=== PATIENT | female | born 1960 | race Two or more races ===

== ENCOUNTER 2018-01-02 22:01 | Emergency (ER) | payer OTHER ==
[~2018-01-02] VITALS: Ht 157.5 cm; Wt 78.9 kg
[2018-01-02] MEDS ORDERED: HYDROCODONE/APAP 5/325MG 1 EACH TABLET PO ONE (22:30)
[2018-01-02] MEDS ORDERED: ONDANSETRON 4 MG TAB.RAPDIS PO ONE (22:30)
[2018-01-02] MEDS ORDERED: IBUPROFEN 600 MG TABLET PO ONE ×2 (22:30→22:32)
[2018-01-02] MEDS ORDERED: HYDROCODONE/APAP 5/325MG 1 EACH TABLET ONE (22:31)
[2018-01-02] MEDS ORDERED: ONDANSETRON 4 MG TAB.RAPDIS ONE (22:32)
--- NOTE | 2018-01-02 22:39 | NUR ---
pt refused [place]-5 and zofran odt. stated that zofran makes her feel worse. pt only took motrin 600mg po. informed .
--- NOTE | 2018-01-02 22:50 | NUR ---
PT REFUSING CT SCANS. DR GOLDBERG NOTIFIED.
--- NOTE | 2018-01-03 01:26 | NUR ---
Patient discharged to home in stable condition. Written and verbal after care instructions given. Patient verbalizes understanding of instruction. PT REC'D AN SEAN BANDAGE TO LEFT ANKLE. GRIPPER SOCKS GIVEN. PT REFUSED NAPROSYN RX. AWARE. PT WAS INSTRUCTED TO TAKE IBUPROPHEN. VSS. PT AMBULATED OUT WITH A LIMP. PT'S IS DRIVING PT HOME.
[2018-01-03 01:28] VITALS: BP 127/68
== END 2018-01-03 01:29 | disposition home or self-care (01) ==
LOC: ER 22:02
DX: S93.402A Sprain of unspecified ligament of left ankle, initial encounter (principal); S80.01XA Contusion of right knee, initial encounter; S00.532A Contusion of oral cavity, initial encounter; W01.10XA Fall on same level from slipping, tripping and stumbling with subsequent striking against unspecified object, initial encounter; Y93.01 Activity, walking, marching and hiking; Y92.89 Other specified places as the place of occurrence of the external cause; Y99.8 Other external cause status
CPT/HCPCS: 73564; 73610; 99284; A4606; Z7610 ×2; Q0162